=== PATIENT | male | born 1945 | race Caucasian/White ===

== ENCOUNTER → 2017-01-21 | Outpatient (CLI) | payer OTHER ==
[2015-04-25 11:15] VITALS: BP 141/61
[2017-01-21 11:46] LABS: GFR 73.9
== END | disposition home or self-care (01) ==
LOC: PMGWOUND 09:24
PROVIDERS: ATTEND Emergency Medicine Undersea and Hyperbaric Medicine
DX: E11.621 Type 2 diabetes mellitus with foot ulcer (principal); L97.511 Non-pressure chronic ulcer of other part of right foot limited to breakdown of skin; K21.9 Gastro-esophageal reflux disease without esophagitis; I10 Essential (primary) hypertension; J44.9 Chronic obstructive pulmonary disease, unspecified; Z86.718 Personal history of other venous thrombosis and embolism; Z89.421 Acquired absence of other right toe(s)
CPT/HCPCS: 36415; 82565; 84520; 97597

== ENCOUNTER → 2017-01-28 | Outpatient (CLI) | payer OTHER ==
[2015-04-25 11:15] VITALS: BP 141/61
[~2017-01-28] MED LIST: ALBU0.63 NEB; AMLO2.5T PO; AMLO5TAB2 PO; AZEL205. NS; ELUX75TA PO; FLUT9.9S NS; GLIM1TAB2 PO; LISI-334 PO; LISI2.5T PO; PROAIR RESPICL90 MCG IH; SULF1TAB24 PO
== END | disposition home or self-care (01) ==
LOC: PMGWOUND 10:56
PROVIDERS: ATTEND Emergency Medicine Undersea and Hyperbaric Medicine
DX: E11.621 Type 2 diabetes mellitus with foot ulcer (principal); I87.2 Venous insufficiency (chronic) (peripheral); L97.514 Non-pressure chronic ulcer of other part of right foot with necrosis of bone; K21.9 Gastro-esophageal reflux disease without esophagitis; M10.9 Gout, unspecified; J44.9 Chronic obstructive pulmonary disease, unspecified; Z86.718 Personal history of other venous thrombosis and embolism
CPT/HCPCS: 99214

== ENCOUNTER 2017-04-02 15:19 | Emergency (ER) | payer OTHER ==
[2017-04-02 16:34] LABS: ADD MAN DIFF? NO
[2017-04-02 16:37] LABS: BASO # 0.1 x10^3/uL (0.0-0.2); BASO % 1 % (0-3); EOS # 0.5 x10^3/uL (0.0-0.7); EOS % 5 % (0-3); HEMATOCRIT 39.6 % (39.0-53.0); LYMPH # 1.9 x10^3/uL (1.0-4.8); LYMPH % 19 % (24-48); MEAN CORPUSCULAR HEMOGLOBIN 32 pg (25-35); MEAN CORPUSCULAR HGB CONC 33 g/dL (31-37); MEAN CORPUSCULAR VOLUME 98 fL (79-100); MONO % 10 % (0-9); NEUT # 6.4 x10^3uL (1.8-7.7); NEUT % 65 % (31-73); PLATELET COUNT 186 x10^3/uL (140-400); RED BLOOD COUNT 4.04 x10^6/uL (4.30-5.70); RED CELL DISTRIBUTION WIDTH 14.6 % (11.5-14.5); WHITE BLOOD COUNT 9.8 x10^3/uL (4.0-11.0)
[2017-04-02] MEDS: IPRATROPIUM BROMIDE 0.5 MG/2.5 ML NEBU. NEB (16:41)
[2017-04-02] MEDS: ALBUTEROL SULFATE 2.5 MG/3 ML NEBU. NEB ×2 (16:42→19:20)
[2017-04-02 16:47] LABS: TROPONIN BY ISTAT 0.02 ng/ml (<0.08)
[2017-04-02 16:51] LABS: ANION GAP 7 (6-14); BLOOD UREA NITROGEN 12 mg/dL (8-26); BUN/CREATININE RATIO 12 (6-20); CALCIUM 9.2 mg/dL (8.5-10.1); CARBON DIOXIDE 31 mmol/L (21-32); CHLORIDE 101 mmol/L (98-107); GFR 73.9; GLUCOSE 174 mg/dL (70-99); POTASSIUM 4.3 mmol/L (3.5-5.1); SODIUM 139 mmol/L (136-145)
[2017-04-02 16:55] LABS: INFLUENZA A PATIENT NEGATIVE (NEGATIVE); INFLUENZA B PATIENT NEGATIVE (NEGATIVE)
[2017-04-02 16:56] LABS: OBC FLU VALID
[2017-04-02 16:57] LABS: ALBUMIN 3.3 g/dL (3.4-5.0); ALBUMIN/GLOBULIN RATIO 0.9 (1.0-1.7); ALK PHOS 96 U/L (46-116); ALT (SGPT) 28 U/L (16-63); AST (SGOT) 28 U/L (15-37); TOTAL BILIRUBIN 0.3 mg/dL (0.2-1.0); TOTAL PROTEIN 6.9 g/dL (6.4-8.2)
[2017-04-02 17:05] LABS: NT-PRO BNP 66 pg/mL (0-124)
[2017-04-02] MEDS: methylPREDNISolone SOD SUCC PF 125 MG/2 ML VIAL. IV (19:04)
== END 2017-04-02 19:56 | disposition home or self-care (01) ==
LOC: ER 15:19
DX: R06.02 Shortness of breath (principal); J44.9 Chronic obstructive pulmonary disease, unspecified; Z88.5 Allergy status to narcotic agent
CPT/HCPCS: 36415; 71045; 71250; 80053; 83880; 84484; 85025; 87804; 87804-59; 93005; 94640; 96374; 99285-25; J2930; J7613; J7644

== ENCOUNTER → 2017-04-21 | Outpatient (CLI) | payer OTHER | END | disposition home or self-care (01) | LOC: SPEC 17:41 | DX: M86.171 Other acute osteomyelitis, right ankle and foot (principal) | CPT/HCPCS: 87071; 87075; 87205; 88304; 88311 ==

== ENCOUNTER → 2017-06-25 | Outpatient (CLI) | payer OTHER | END | disposition home or self-care (01) | LOC: RAD 11:02 | DX: J98.11 Atelectasis (principal); J90 Pleural effusion, not elsewhere classified | CPT/HCPCS: 71046 ==

== ENCOUNTER 2017-06-30 07:02 | Outpatient (CLI) | payer OTHER ==
[2017-06-30 07:31] LABS: HEMATOCRIT 40.9 % (39.0-53.0); HEMOGLOBIN 13.3 g/dL (13.0-17.5); MEAN CORPUSCULAR HEMOGLOBIN 32 pg (25-35); MEAN CORPUSCULAR HGB CONC 33 g/dL (31-37); MEAN CORPUSCULAR VOLUME 98 fL (79-100); PLATELET COUNT 243 x10^3/uL (140-400); RED BLOOD COUNT 4.16 x10^6/uL (4.30-5.70); RED CELL DISTRIBUTION WIDTH 13.8 % (11.5-14.5); WHITE BLOOD COUNT 8.4 x10^3/uL (4.0-11.0)
[2017-06-30 07:41] LABS: PARTIAL THROMBOPLASTIN TIME 31 SEC (24-38); PROTHROMBIN TIME PATIENT 12.7 SEC (11.7-14.0)
[2017-06-30] MEDS ORDERED: LIDOCAINE WITH 8.4% SOD BICARB 3 ML DISP.SYRIN. ×3 (08:24→08:51)
[2017-06-30] MEDS: LIDOCAINE WITH 8.4% SOD BICARB 3 ML DISP.SYRIN. INJ (09:00)
[2017-07-01 13:18] LABS: BODY FLUID LDH 209 IU/L (.)
== END 2017-06-30 10:42 | disposition home or self-care (01) ==
LOC: INTRAD 07:02
DX: J90 Pleural effusion, not elsewhere classified (principal); E11.42 Type 2 diabetes mellitus with diabetic polyneuropathy; J44.9 Chronic obstructive pulmonary disease, unspecified; I10 Essential (primary) hypertension; K21.9 Gastro-esophageal reflux disease without esophagitis; Z86.718 Personal history of other venous thrombosis and embolism; Z85.828 Personal history of other malignant neoplasm of skin; Z79.01 Long term (current) use of anticoagulants
CPT/HCPCS: 32555; 36415; 71046; 83615; 84157; 85027; 85610; 85730; 87205

== ENCOUNTER → 2017-07-07 | Outpatient (CLI) | payer OTHER | END | disposition home or self-care (01) | LOC: ECHO 09:44 | DX: I36.1 Nonrheumatic tricuspid (valve) insufficiency (principal); I51.7 Cardiomegaly | CPT/HCPCS: 93306 ==

== ENCOUNTER → 2017-09-16 | Outpatient (CLI) | payer OTHER ==
[~2017-09-16] MED LIST changes: -ALBU0.63 NEB; -AMLO2.5T PO; -AMLO5TAB2 PO; -AZEL205. NS; +CONTRAST GIVEN. MC; -ELUX75TA PO; -FLUT9.9S NS; -GLIM1TAB2 PO; +HEPARIN for IV BOLUS 10,000 UNIT/10 ML VIAL.; +IODIXANOL 320 MG/ML 100 ML VIAL.; +IODIXANOL 320 MG/ML 100 ML VIAL. IART; +IOHEXOL 300 MG/ML 100ML VIAL.; +LIDOCAINE 2% 20 ML VIAL.; -LISI-334 PO; -LISI2.5T PO; +MIDAZOLAM HCL/PF 2 MG/2 ML VIAL.; +NITROGLYCERIN 200 MCG/2 ML SYRINGE FOR CATH/VASC LAB.; -PROAIR RESPICL90 MCG IH; -SULF1TAB24 PO; +VERAPAMIL 5 MG/2 ML VIAL.; +fentaNYL PF VIAL 100 MCG/2 ML VIAL
[2017-09-16 11:22] LABS: HEMATOCRIT 38.9 % (39.0-53.0); HEMOGLOBIN 13.5 g/dL (13.0-17.5); MEAN CORPUSCULAR HEMOGLOBIN 33 pg (25-35); MEAN CORPUSCULAR HGB CONC 35 g/dL (31-37); MEAN CORPUSCULAR VOLUME 96 fL (79-100); PLATELET COUNT 249 x10^3/uL (140-400); RED BLOOD COUNT 4.05 x10^6/uL (4.30-5.70); RED CELL DISTRIBUTION WIDTH 13.6 % (11.5-14.5)
[2017-09-16 11:31] LABS: PARTIAL THROMBOPLASTIN TIME 32 SEC (24-38); PROTHROMBIN TIME PATIENT 12.6 SEC (11.7-14.0)
[2017-09-16 11:39] LABS: ANION GAP 7 (6-14); BLOOD UREA NITROGEN 20 mg/dL (8-26); CALCIUM 9.3 mg/dL (8.5-10.1); CARBON DIOXIDE 28 mmol/L (21-32); CHLORIDE 99 mmol/L (98-107); GFR 73.7; GLUCOSE 166 mg/dL (70-99); POTASSIUM 4.5 mmol/L (3.5-5.1); SODIUM 134 mmol/L (136-145)
[2017-09-16] MEDS: NITROGLYCERIN 200 MCG/2 ML SYRINGE FOR CATH/VASC LAB. IART (14:58)
[2017-09-16] MEDS: LIDOCAINE 2% 20 ML VIAL. IJ (14:58)
[2017-09-16] MEDS: HEPARIN for IV BOLUS 10,000 UNIT/10 ML VIAL. IART (14:59)
[2017-09-16] MEDS: MIDAZOLAM HCL/PF 2 MG/2 ML VIAL. IV (14:59)
[2017-09-16] MEDS: fentaNYL PF VIAL 100 MCG/2 ML VIAL IV (14:59)
[2017-09-16] MEDS: VERAPAMIL 5 MG/2 ML VIAL. IART (14:59)
== END | disposition home or self-care (01) ==
LOC: CCL 10:36
DX: I25.110 Atherosclerotic heart disease of native coronary artery with unstable angina pectoris (principal); Z88.8 Allergy status to other drugs, medicaments and biological substances; E11.21 Type 2 diabetes mellitus with diabetic nephropathy; I10 Essential (primary) hypertension; Z86.718 Personal history of other venous thrombosis and embolism; J44.9 Chronic obstructive pulmonary disease, unspecified; K21.9 Gastro-esophageal reflux disease without esophagitis; M10.9 Gout, unspecified; Z89.421 Acquired absence of other right toe(s); Z72.89 Other problems related to lifestyle; Z85.828 Personal history of other malignant neoplasm of skin; Z86.14 Personal history of Methicillin resistant Staphylococcus aureus infection; Z98.890 Other specified postprocedural states; Z79.84 Long term (current) use of oral hypoglycemic drugs
CPT/HCPCS: 36415; 80048; 85027; 85610; 85730; 93458; 99152; 99153; C1769; C1892; J1644; J2250; J3010; J3490

== ENCOUNTER 2018-02-11 14:06 | Emergency (ER) | payer OTHER ==
[~2018-02-11] VITALS: Ht 172.7 cm; Wt 107.5 kg
[~2018-02-11 14:06] MED LIST changes: +ALBU0.63 NEB; +AMLO2.5T3 PO; +AMLO5TAB7 PO; +AZEL205. NS; +BUDE0.5A NEB; -CONTRAST GIVEN. MC; +ELUX75TA PO; +FLUT9.9S NS; +GLIM1TAB2 PO; -HEPARIN for IV BOLUS 10,000 UNIT/10 ML VIAL.; +HYDR-965 PO; -IODIXANOL 320 MG/ML 100 ML VIAL.; -IODIXANOL 320 MG/ML 100 ML VIAL. IART; -IOHEXOL 300 MG/ML 100ML VIAL.; +IPRA3AMP29 NEB; -LIDOCAINE 2% 20 ML VIAL.; +LISI-334 PO; +LISI2.5T PO; -MIDAZOLAM HCL/PF 2 MG/2 ML VIAL.; +MOME220A IH; -NITROGLYCERIN 200 MCG/2 ML SYRINGE FOR CATH/VASC LAB.; +PROAIR HFA8.5 GM INH; +PROAIR RESPICL90 MCG IH; +SULF1TAB24 PO; -VERAPAMIL 5 MG/2 ML VIAL.; -fentaNYL PF VIAL 100 MCG/2 ML VIAL
[2018-02-11 14:33] VITALS: BP 146/68
--- NOTE | 2018-02-11 15:05 | RAD ---
Indication:PATIENT FELL ON FRIDAY. SWELLING OF RIGHT KNEE AND PATIENT SAID PAIN BEHIND KNEE AND TROUBLE BENDING IT. TECHNIQUE: 3 views of the right knee COMPARISON:None FINDINGS: No acute fracture or dislocation. 8 mm well-corticated calcific density is seen in the posterior aspect of the medial tibial plateau which may suggest a loose body or an avulsion fracture although no donor site is identified. Moderate medial joint space narrowing is seen with tricompartment a small spurs. Small suprapatellar effusion. Vascular calcifications noted. IMPRESSION: 1. Small calcific density in the posterior aspect of the medial tibial plateau suggests a loose body. 2. Moderate medial joint compartment arthritis. 3. Small suprapatellar effusion. Electronically signed by: Derek Shelby DO (02/11/2018 3:01 PM) [id number]
--- NOTE | 2018-02-11 15:45 | PHYS DOC ---
Past Medical History Past Medical History: Asthma, Cancer, COPD, Pneumonia Past Surgical History: Cancer Surgery, Knee Replacement, Other Additional Past Surgical Histo: R upper chest skin CA removed Alcohol Use: Rarely Drug Use: None Adult General Chief Complaint Chief Complaint: KNEE INJURY HPI HPI Patient is a 72 year old male who presents to the ER with complaints of R knee pain x 5 days. Pt states he fell onto his R knee on 02/07/18 and has had pain and swelling in the R knee since the injury. He denies any numbness or tingling. States that he has been using a cane to walk. Pt states that the pain increases with movement and weight bearing. He fell from standing. Review of Systems Review of Systems Constitutional: Denies fever or chills [] Musculoskeletal: Denies back pain, reports R knee pain Integument: Denies rash or skin lesions [] Neurologic: Denies focal weakness or sensory changes [] All other systems were reviewed and found to be within normal limits, except as documented in this note. Allergies Allergies Allergies Coded Allergies Type Severity Reaction Last Updated Verified prednisone Adverse Reaction Intermediate Hallucinations on high doses 01/30/17 Yes Physical Exam Physical Exam Constitutional: Well developed, well nourished, no acute distress, non-toxic appearance. [] HENT: Normocephalic, atraumatic, bilateral external ears normal, nose normal. [] Eyes: PERRLA, conjunctiva normal, no discharge. [] Skin: Warm, dry, no erythema, no rash. [] Extremities: No cyanosis, no clubbing, ROM intact; 1+ edema to anterior R knee, no bruising noted, full ROM of R knee negative anterior and posterior drawer testing, increased pain with valgus maneuver. Neurologic: Alert and oriented X 3, normal motor function, normal sensory function, no focal deficits noted. [] Psychologic: Affect normal, judgement normal, mood normal. [] Current Patient Data Vital Signs Vital Signs Date Time Temp Pulse Resp B/P (MAP) Pulse Ox O2 Delivery O2 Flow Rate FiO2 02/11/18 14:33 98.6 91 16 146/68 (94) 97 Room Air 98.6 EKG EKG [] Radiology/Procedures Radiology/Procedures PROCEDURE: KNEE RIGHT 3V Indication:PATIENT FELL ON FRIDAY. SWELLING OF RIGHT KNEE AND PATIENT SAID PAIN BEHIND KNEE AND TROUBLE BENDING IT. TECHNIQUE: 3 views of the right knee COMPARISON:None FINDINGS: No acute fracture or dislocation. 8 mm well-corticated calcific density is seen in the posterior aspect of the medial tibial plateau which may suggest a loose body or an avulsion fracture although no donor site is identified. Moderate medial joint space narrowing is seen with tricompartment a small spurs. Small suprapatellar effusion. Vascular calcifications noted. IMPRESSION: 1. Small calcific density in the posterior aspect of the medial tibial plateau suggests a loose body. 2. Moderate medial joint compartment arthritis. 3. Small suprapatellar effusion.[] Course & Med Decision Making Course & Med Decision Making Pertinent Labs and Imaging studies reviewed. (See chart for details) Dx: R knee pain and effusion Pt was placed in a knee immobilizer and instructed to use his walker for ambulation to limit weight bearing. Follow up with Dr. Abbasi this week. Offered pain medications, pt declined will continue taking naproxen at home. Patient verbalized an understanding of home care, medications, follow-up, and return to ED instructions and was in agreement with the plan of care. [] Dragon Disclaimer Dragon Disclaimer This electronic medical record was generated, in whole or in part, using a voice recognition dictation system. Departure Departure Impression: Primary Impression: Right knee pain Additional Impression: Knee effusion, right Disposition: 01 HOME, SELF-CARE Condition: STABLE Referrals: Vanna VAZQUEZ MD (PCP) EVENS ABBASI MD Patient Instructions: Knee Effusion, [id number]-yp-Hnke, Knee Immobilizer, Easy-to- Read Additional Instructions: Continue taking naproxen or tylenol at home for relief of pain. Recommend application of ice, elevation, and rest of affected extremity. Wear the knee immobilizer that was placed until follow up appointment with Dr. Abbasi, call in the morning to schedule an appointment. Return to the ER if your symptoms worsen. Problem Qualifiers Primary Impression: Right knee pain Chronicity: acute Qualified Codes: M25.561 - Pain in right knee [employer] Feb 11, 2018 15:45
== END 2018-02-11 16:03 | disposition home or self-care (01) ==
LOC: ER 14:06
DX: M25.461 Effusion, right knee (principal); G89.11 Acute pain due to trauma; M13.861 Other specified arthritis, right knee; J44.9 Chronic obstructive pulmonary disease, unspecified; Z96.659 Presence of unspecified artificial knee joint; Z88.8 Allergy status to other drugs, medicaments and biological substances; W18.30XA Fall on same level, unspecified, initial encounter; Y93.89 Activity, other specified; Y92.098 Other place in other non-institutional residence as the place of occurrence of the external cause; Y99.8 Other external cause status
CPT/HCPCS: 29505; 73562; 99284

== ENCOUNTER → 2021-04-18 | Outpatient (CLI) | payer MEDICARE ==
[2018-04-06 15:00] VITALS: BP 140/75
[~2021-04-18] MED LIST changes: +ALBU2.5V8 INH; +AMLO-186 PO; -AMLO2.5T3 PO; +AMLO2.5T5 PO; -AMLO5TAB7 PO; -GLIM1TAB2 PO; +GLIM1TAB7 PO; +HYDR-3165 PO; -HYDR-965 PO; +LACT1CAP19 PO; +LINE600T12 PO; -LISI-334 PO; -LISI2.5T PO; +LISI2.5T12 PO; +LISI20TA18 PO; +METF500T PO; -PROAIR HFA8.5 GM INH; +Pantoprazole PO
--- NOTE | 2021-04-18 13:38 | KCIC ---
XR FINGER(S)_RIGHT 2+VIEWS DATE: 04/18/2021 11:50 AM INDICATION: Reason: RT FIFTH DIGIT PAIN / Spl. Instructions: Swelling in tip of rt 5 th digit x 2 we eks, new pain in tip x 2 days. NKI. / History: COMPARISON: None. FINDINGS: Bones: There is no evidence of acute fracture or dislocation. Joints: Moderate fifth DIP and PIP joint space narrowing. Miscellaneous: No radiopaque foreign bodies. IMPRESSION: No acute fracture or radiopaque foreign body. Electronically signed by: Jon Esquivel MD (04/18/2021 1:36 PM) [id number]
== END ==
LOC: KCIC 11:39
PROVIDERS: ATTEND Family Medicine
DX: M25.841 Other specified joint disorders, right hand (principal)
CPT/HCPCS: 73140